=== PATIENT | female | born 1980 | race African-American/Black ===

== ENCOUNTER 2018-02-26 15:02 | Emergency (ER) | payer BC ==
[~2018-02-26] VITALS: Ht 165.1 cm; Wt 96.2 kg
[~2018-02-26 15:02] MED LIST: CIPROFLOXIN HC2.5 M1 OPHTHALMIC; FLEXERIL PO; IBUPROFEN 800800 M1 PO; MULTI-VITAMIN1 EAC5 PO; NAPROSYN500 MG PO; NORCO 5-325 TA1 EACH PO
[2018-02-26] MEDS ORDERED: PREDNISONE 5 MG5 M1 PO (15:49)
[2018-02-26] MEDS ORDERED: DESMOPRESSIN A0.1 MG PO (15:49)
[2018-02-26] MEDS ORDERED: SYNTHROID100 MC1 PO (15:49)
[2018-02-26] MEDS ORDERED: FLONASE 0.05%50 MCG NASAL (16:09)
[2018-02-26] MEDS ORDERED: CORICIDIN HBP1 EAC5 PO (16:10)
== END 2018-02-26 16:40 | disposition home or self-care (01) ==
LOC: ER 15:02
DX: J06.9 Acute upper respiratory infection, unspecified (principal); M79.1 Myalgia; I10 Essential (primary) hypertension

== ENCOUNTER 2019-03-03 16:37 | Emergency (ER) | payer BC ==
[~2019-03-03] VITALS: Ht 167.6 cm; Wt 97.1 kg
[~2019-03-03 16:37] MED LIST changes: +CORICIDIN HBP1 EAC5 PO; +DESMOPRESSIN A0.1 MG PO; +FLONASE 0.05%50 MCG NASAL; +PREDNISONE 5 MG5 M1 PO; +SYNTHROID100 MC1 PO
[2019-03-03] MEDS ORDERED: NAPROSYN500 MG PO (17:08)
[2019-03-03 17:14] LABS: URINE BILIRUBIN NEGATIVE (Negative); URINE BLOOD 1+ (Negative); URINE CLARITY CLEAR; URINE COLOR YELLOW; URINE GLUCOSE-RANDOM* NEGATIVE (Negative); URINE KETONES NEGATIVE (Negative); URINE LEUKOCYTES-REFLEX NEGATIVE (Negative); URINE NITRITE-REFLEX NEGATIVE (Negative); URINE PROTEIN (DIPSTICK) TRACE (Negative); URINE SPECIFIC GRAVITY >= 1.030 (1.005-1.035); URINE UROBILINOGEN 0.2 E.U./dl (0.2-1.0)
[2019-03-03 17:19] LABS: ABSOLUTE NEUTROPHILS 2.6 thou/uL (1.4-8.2); BASOPHILS 1.3 % (0.0-2.0); HEMOGLOBIN 13.1 gm/dL (12.0-15.0); LYMPHOCYTES 33.8 % (24.0-44.0); MCH 29.1 pg (26.0-34.0); MCHC 34.5 g/dL (28.0-37.0); MCV 84.3 fL (80.0-100.0); MONOCYTES 7.1 % (1.0-8.0); PLATELET COUNT 140 thou/uL (150-400); POLYS 54.8 % (36.0-66.0); RBC 4.51 mil/uL (4.20-5.00); RDW 15.2 % (10.5-14.5); WBC 4.8 thou/uL (4.0-11.0)
[2019-03-03 17:30] LABS: CALCIUM 8.9 mg/dL (8.5-10.1); CREATININE 1.5 mg/dL (0.6-1.0); POTASSIUM 3.1 mmol/L (3.5-5.1)
[2019-03-03 17:32] LABS: HYALINE CASTS 0-3 Few /LPF (None Seen)
[2019-03-03 17:33] LABS: BACTERIA-REFLEX 1-9 Few /HPF (None Seen); CRYSTALS None Seen /LPF (None Seen); SQUAMOUS 0-3 Few /LPF (0-3); URINE RBC 0-2 Rare /HPF (0-2); URINE WBC-REFLEX None Seen /HPF (0-5)
[2019-03-03 17:35] LABS: ALBUMIN 3.9 g/dL (3.4-5.0); DIRECT BILIRUBIN 0.4 mg/dL (<0.1-0.3); TOTAL BILIRUBIN 2.5 mg/dL (<0.1-1.0); TOTAL PROTEIN 7.6 g/dL (6.4-8.2)
[2019-03-03] MEDS ORDERED: ZOFRAN ODT4 MG PO (20:30)
[2019-03-03 20:40] VITALS: BP 128/82
== END 2019-03-03 20:41 | disposition home or self-care (01) ==
LOC: ER 16:37
PROVIDERS: Emergency Medicine
DX: E87.6 Hypokalemia (principal); R11.2 Nausea with vomiting, unspecified; R19.7 Diarrhea, unspecified; E80.6 Other disorders of bilirubin metabolism; I10 Essential (primary) hypertension; Z88.1 Allergy status to other antibiotic agents; Z91.041 Radiographic dye allergy status